=== PATIENT | male | born 1975 | race Caucasian/White ===

== ENCOUNTER 2017-05-15 19:11 | Inpatient (IN) ==
--- NOTE | 2017-05-15 20:12 | Emergency Department Note ---
Disposition Clinical Impression: Chest pain Disposition: Admitted As Inpatient Referrals: NO,PCP [Non-Partnered Physician] - Forms: ED Satisfaction Letter Time of Disposition: 22:32 General Adult HPI - General Chief complaint: ED Chest Pain Stated complaint: chest pain,swollen legs, had ekg at [facility] Time Seen by Provider: 05/15/17 19:52 Source: patient Mode of arrival: private vehicle Limitations: no limitations Nursing Notes Reviewed: Yes Vital Signs Reviewed: Yes - History of Present Illness HPI Narrative: 42-year-old male presents from urgent care where he was seen today for 1 month of progressive shortness of breath, lower extremity edema, and orthopnea. He has gradually worsening cough that is nonproductive as well. He received 324 mg of aspirin at urgent care. He does admit to mild chest tightness with shortness of breath. He denies any associated headache, confusion, fever, abdominal pain, nausea vomiting, diarrhea or constipation. He denies any change in urination. He takes no medicine at home, but states that he was formerly diagnosed with hypertension which is not treated due to him not having a doctor for the past few years. He denies tobacco or alcohol use, or recreational drug use. He denies any history of heart disease or congestive heart failure. Pain Scale: 3 - Related Data Home Medications Medication Instructions Recorded Confirmed No Known Home Drugs 05/15/17 05/15/17 Allergies Allergy/AdvReac Type Severity Reaction Status Date / Time No Known Allergies Allergy Verified 05/15/17 19:16 All systems ED: reviewed and negative except as stated. Past Medical History - Past Medical History Attestation: Yes The following information was validated with the patient. Source: patient Medical history: Reports: kidney stones Psychiatric history: Reports: no psych history - Social History Smoking Status: Never smoker Smokeless Tobacco Status: No Alcohol use: Reports: none Drug use: Reports: none Physical Exam - Head Head exam: atraumatic, normocephalic, normal inspection - Eye Eye exam: Present: normal appearance, PERRL, EOMI - ENT ENT exam: normal exam, normal oropharynx, mucous membranes moist - Neck Neck exam: Present: normal inspection, full ROM, trachea midline - Chest Chest inspection: Present: normal inspection, symmetric chest wall rise - Respiratory No left-sided distress with crackles at the bilateral bases. No wheezes. Cardiovascular Cardiovascular exam: Present: regular rate, normal rhythm, normal heart sounds - Abdominal Exam Abdominal exam: Present: soft, Non-Tender. Absent: tenderness, distention, guarding, rebound, rigidity - Extremities Exam Bilateral pitting edema to the knees. - Back Exam Back exam: Present: normal inspection, full ROM. Absent: tenderness, CVA tenderness (R), CVA tenderness (L) - Neurological Exam Neurological exam: Present: alert, oriented X3, CN II-XII intact - Psychiatric Psychiatric exam: Present: normal affect, normal mood - Skin Skin exam: Present: warm, dry, intact, normal color - General Limitations: no limitations General appearance: alert Course - Reevaluation(s) Reevaluation #1: Initially I suspected the patient would have findings concerning for congestive heart failure, but chest x-ray and BNP were normal. I proceeded to get a d- dimer to evaluate for pulmonary embolus as a cause of his shortness of breath which was also normal. At this point I ambulated the patient in the emergency department to see if he would develop hypoxia or shortness of breath with ambulation. Unfortunately while I was ambulating him he developed chest heaviness along with shortness of breath. This resolved with rest. Given the patient's chest pain with mild exertion, morbid obesity, history of poorly controlled hypertension and hypercholesterolemia we will admit him for chest pain. Initial troponin is negative. Hospitalist is kvng. Time: 22:29 Vital Signs Temperature 97.9 F 05/15/17 19:14 Pulse Rate 98 05/15/17 19:14 Respiratory Rate 20 05/15/17 19:14 Blood Pressure 186/118 05/15/17 19:14 O2 Sat by Pulse Oximetry 95 05/15/17 19:14 Temperature 97.9 F 05/15/17 19:14 Pulse Rate 103 05/15/17 20:56 Respiratory Rate 18 05/15/17 20:56 Blood Pressure 151/104 05/15/17 20:56 O2 Sat by Pulse Oximetry 95 05/15/17 20:56 Oxygen Delivery Oxygen Delivery Room Air Medical Decision Making - MDM Narrative Medical decision making narrative: I examined this patient and my medical decision-making was reviewed with the DYE STAND LOADER/PA/Advanced Practice Nurse/Resident Physician. I agree with the documented findings, disposition and treatment plan as described except to the extent set forth below. Patient seen and evaluated by Dr. Olvera myself, I agree with his evaluation and management plan, supervised the care of the patient's stay. Patient's been having orthopnea dyspnea and edema looks maybe a month. No history of CHF. Conidial workup for him. And most likely if this is positive he will need admission. Patient's agreement with this plan. Patient denies any chest pain at this time. Chest X-Ray 05/15/17 20:09 IMPRESSION: No acute process. D/ / Germán Luis MD / Germán Luis MD Interpreting Provider: Germán Luis MD 2140 hrs.: Despite his symptoms his BNP and chest x-ray do not show consistency with CHF. He is low to moderate risk for a PE. So we are going to add on a d- dimer and determine if that is elevated or not. He has no chest pain at this time. 2207 hrs.: Patient's d-dimer is normal. We are going to ambulate him and see how he does see if he becomes dyspneic or hypoxic. Or has chest discomfort. And then discuss this disposition. 2255 hrs.: Patient was ambulatory and hat was having some dyspnea and chest pains were to go and bring him into the hospital. For chest pain rule out. He is in agreement with this plan. - Lab Data Result diagrams: 05/15/17 21:00 05/15/17 21:00 Lab Results 05/15/17 05/15/17 05/15/17 Range/Units 21:00 21:00 21:00 WBC 15.7 H (4.3-11.1) K/mcL RBC 5.42 (4.19-5.50) M/mcL Hgb 15.3 (12.9-16.9) g/dL Hct 46.2 (37.5-50.1) % MCV 85.2 (83.0-100.0) fL MCH 28.2 (28.0-33.3) pg MCHC 33.1 (31.6-35.5) g/dL RDW 14.0 (11.5-14.5) % Plt Count 352 (140-400) K/mcL MPV 9.3 L (9.4-12.4) fL Immature Gran % 1.1 (0-4) % Seg Neutrophils % 72.1 % Lymphocytes % 17.1 % Monocytes % 5.7 % Eosinophils % 3.2 % Basophils % 0.8 % Neutrophils # 11.3 H (1.6-8.9) K/mcL Lymphocytes # 2.7 (0.6-4.6) K/mcL Monocytes # 0.9 (0.0-1.3) K/mcL Eosinophils # 0.5 (0.0-0.6) K/mcL Basophils # 0.1 (0.0-0.2) K/mcL D-Dimer (0-500) ng/mLFEU Sodium 137 (136-145) mEq/L Potassium 3.9 (3.5-4.5) mEq/L Chloride 103 (98-109) mEq/L Carbon Dioxide 22 (19-29) mEq/L BUN 12 (8-26) mg/dL Creatinine 0.83 (0.72-1.25) mg/dL Est GFR ( Amer) > 60 (> 60) Est GFR (Non-Af Amer) > 60 (> 60) BUN/Creatinine Ratio 14 (6-26) Glucose 106 H (70-99) mg/dL Calculated Osmolality 284 (280-300) Calcium 9.7 (8.6-10.8) mg/dL Troponin I 0.02 (0-0.03) ng/mL B-Natriuretic Peptide (0-100) pg/mL 05/15/17 05/15/17 Range/Units 21:00 21:00 WBC (4.3-11.1) K/mcL RBC (4.19-5.50) M/mcL Hgb (12.9-16.9) g/dL Hct (37.5-50.1) % MCV (83.0-100.0) fL MCH (28.0-33.3) pg MCHC (31.6-35.5) g/dL RDW (11.5-14.5) % Plt Count (140-400) K/mcL MPV (9.4-12.4) fL Immature Gran % (0-4) % Seg Neutrophils % % Lymphocytes % % Monocytes % % Eosinophils % % Basophils % % Neutrophils # (1.6-8.9) K/mcL Lymphocytes # (0.6-4.6) K/mcL Monocytes # (0.0-1.3) K/mcL Eosinophils # (0.0-0.6) K/mcL Basophils # (0.0-0.2) K/mcL D-Dimer 345 (0-500) ng/mLFEU Sodium (136-145) mEq/L Potassium (3.5-4.5) mEq/L Chloride (98-109) mEq/L Carbon Dioxide (19-29) mEq/L BUN (8-26) mg/dL Creatinine (0.72-1.25) mg/dL Est GFR ( Amer) (> 60) Est GFR (Non-Af Amer) (> 60) BUN/Creatinine Ratio (6-26) Glucose (70-99) mg/dL Calculated Osmolality (280-300) Calcium (8.6-10.8) mg/dL Troponin I (0-0.03) ng/mL B-Natriuretic Peptide < 10 (0-100) pg/mL - EKG Data EKG #1 EKG attestation: Yes I reviewed and interpreted this EKG. EKG results narrative: EKG shows sinus tachycardia at 105 with left axis deviation and normal intervals. No ST elevation or depression. No T-wave inversions. No pathologic Q waves. No ischemic change when compared with 06/09/2015. Repeat EKG again shows no ST elevation or depression. There are T-wave inversions in V1 and possible inferior Q waves which are both new when compared with prior EKG.
[2017-05-15 21:08] LABS: Basophils # 0.1 K/mcL (0.0-0.2); Basophils % 0.8 %; Eosinophils # 0.5 K/mcL (0.0-0.6); Eosinophils % 3.2 %; Hematocrit 46.2 % (37.5-50.1); Hemoglobin 15.3 g/dL (12.9-16.9); Immature Granulocytes % 1.1 % (0-4); Lymphocytes # 2.7 K/mcL (0.6-4.6); Lymphocytes % 17.1 %; Mean Corpuscular HGB Conc 33.1 g/dL (31.6-35.5); Mean Corpuscular Hemoglobin 28.2 pg (28.0-33.3); Mean Corpuscular Volume 85.2 fL (83.0-100.0); Mean Platelet Volume 9.3 fL (9.4-12.4); Monocytes # 0.9 K/mcL (0.0-1.3); Monocytes % 5.7 %; Neutrophils # 11.3 K/mcL (1.6-8.9); Platelet Count 352 K/mcL (140-400); Red Blood Count 5.42 M/mcL (4.19-5.50); Segmented Neutrophils % 72.1 %
[2017-05-15 21:22] LABS: BUN/Creatinine Ratio 14 (6-26); Blood Urea Nitrogen 12 mg/dL (8-26); Calcium 9.7 mg/dL (8.6-10.8); Carbon Dioxide 22 mEq/L (19-29); Chloride 103 mEq/L (98-109); Glucose 106 mg/dL (70-99); Osmolality,Calculated 284 (280-300); Potassium 3.9 mEq/L (3.5-4.5); Sodium 137 mEq/L (136-145); eGFR For African Americans > 60 (> 60); eGFR For Non-African Americans > 60 (> 60)
[2017-05-15] MEDS ORDERED: Furosemide 40 MG/4 ML VIAL IVP ONE (23:11)
--- NOTE | 2017-05-15 23:46 | Internal Med History&Physical ---
Date of Encounter: 05/16/17 Time of Encounter: 23:15 Assessment and Plan (1) Edema of both legs Current visit: Yes Status: Acute Bilateral lower extremity pitting edema 4+ Possibly due to new onset CHF unspecified Echocardiogram pending BN peptide is normal, troponin is normal, d-dimer is normal Chest x-ray negative for acute process Continue IV Lasix, Coreg and losartan, repeat labs in a.m. (2) Chest pain Current visit: Yes Status: Acute Mild chest discomfort and tightness-unclear etiology EKG shows sinus tachycardia, troponin is negative but we will trend troponin Continue aspirin and statin Echocardiogram pending Cardiology consult Qualifiers: Chest pain type: unspecified Qualified Code(s): R07.9 - Chest pain, unspecified (3) Leukocytosis Current visit: Yes Status: Acute Unclear etiology, cultures pending Qualifiers: Leukocytosis type: unspecified Qualified Code(s): D72.829 - Elevated white blood cell count, unspecified (4) Morbid obesity with BMI of 60.0-69.9, adult Current visit: Yes Status: Chronic Advised weight loss (5) DVT prophylaxis Current visit: Yes Status: Acute Continue heparin subcutaneous Internal Medicine - H&P: HPI Admitted From: Emergency Dept History of present illness: Mr. Byrne is a 42 year old male with no significant past medical history. He presents to the [facility] with complaints of shortness of breath and bilateral lower leg edema. Patient states symptoms started about a few weeks ago, and symptoms gradually worsened. Patient also complains of orthopnea. He also has a worsening cough which is nonproductive. Patient does complain of some chest heaviness and tightness which is worse with exertion. He rates it about 3 out of 10. This is relieved with rest. He denies palpitations denies abdominal pain and denies nausea or vomiting no confusion or fever or diarrhea. Patient does not take any medications at home. He does not have a history of congestive heart failure or heart disease. Initially the workup revealed elevated white count. His d-dimer and BNP peptide and troponin are all normal. Chest x-ray does not show any acute process. Bilateral lower leg edema and shortness of breath could be due to new onset congestive heart failure. We will treat the patient with IV Lasix. We will also continue beta gin and losartan and patient will also be on aspirin and statin. Patient on examination is awake and alert. Not in any acute distress. He is able to provide all history. is also at the bedside and she is also able to provide history. states patient does get tired and short of breath sometimes even with minimal exertion. He also has recurrent renal calculi. Patient and his have been explained about his condition and plan of care. They understood and agreed. EKG shows sinus tachycardia. No acute ST-T changes. Past Med Surg Social Fam HX - Past Medical History Medical history: kidney stones Psychiatric history: no psych history - Past Surgical History Surgical History: cholecystectomy - Social History Smoking Status: Never smoker Smokeless Tobacco Status: No Alcohol use: none Drug use: none - Family History Father Living Status: Hx Family Cancer: Yes (colon) Internal Medicine - H&P: Meds No Known Home Drugs 05/15/17 [History] Allergies No Known Allergies Allergy (Verified 05/15/17 19:16) All Systems PM: A 10-system review of systems was performed and is negative for pertinent findings except as documented above in the HPI. - Constitutional Constitutional: as per HPI, fatigue, weakness - Cardiovascular Cardiovascular ROS IM: chest pain, dyspnea, dyspnea on exertion, orthopnea, no syncope - Respiratory Respiratory: cough, dyspnea, dyspnea on exertion, no wheezing, no chest congestion - Gastrointestinal Gastrointestinal: no abdominal pain, no constipation, no cramping, no diarrhea - Neurological Neurological ROS: no abnormal gait, no abnormal speech, no dizziness, no focal weakness, no loss of vision - Constitutional Vitals: Temp Pulse Resp BP Pulse Ox 97.9 F 103 18 151/104 95 05/15/17 19:14 05/15/17 20:56 05/15/17 20:56 05/15/17 20:56 05/15/17 20:56 General appearance: Present: A&O X 3, morbidly obese, no acute distress, answers questions appropriately Exam: Generalized weakness - Head Head exam: Present: atraumatic - Neck Neck exam general surgery: Present: supple - Respiratory Respiratory exam: Present: CTAB. Absent: rhonchi, wheezes - Cardiovascular Cardiovascular exam: Present: +S1, +S2, tachycardia - GI/Abdominal GI/Abdominal exam: Present: distended (Obese), firm (Possible ascites), soft. Absent: guarding, tenderness - Extremities Exam Extremities exam: Present: pedal edema (Pitting edema bilateral lower legs 4+), radial pulses palpable and symetrical. Absent: cyanotic - Neurological Exam Neurological exam: Present: alert, oriented X3, no focal deficits Internal Med - H&P Results - Labs CBC & Chem 7: 05/15/17 21:00 05/15/17 21:00
[2017-05-16] MEDS ORDERED: Naloxone 0.4 MG/ML INJ IVP PRN (01:16)
[2017-05-16] MEDS ORDERED: Ondansetron 4 MG/2 ML VIAL IVP PRN (01:16)
[2017-05-16 05:04] LABS: Hematocrit 42.3 % (37.5-50.1); Hemoglobin 14.2 g/dL (12.9-16.9); Mean Corpuscular HGB Conc 33.6 g/dL (31.6-35.5); Mean Corpuscular Hemoglobin 28.8 pg (28.0-33.3); Mean Corpuscular Volume 85.8 fL (83.0-100.0); Mean Platelet Volume 9.7 fL (9.4-12.4); Platelet Count 312 K/mcL (140-400); Red Blood Count 4.93 M/mcL (4.19-5.50); Red Cell Distribution Width 14.3 % (11.5-14.5)
[2017-05-16 05:11] LABS: Hemoglobin A1C 6.7 %
[2017-05-16 05:20] LABS: Alanine Aminotransferase 24 Units/L (0-55); Albumin 3.5 g/dL (3.5-5.0); Albumin/Globulin Ratio 0.9 (1.1-2.2); Alkaline Phosphatase 96 Units/L (38-126); Aspartate Amino Transferase 24 Units/L (5-34); BUN/Creatinine Ratio 15 (6-26); Bilirubin,Total 0.8 mg/dL (0.2-1.2); Blood Urea Nitrogen 14 mg/dL (8-26); Calcium 9.4 mg/dL (8.6-10.8); Carbon Dioxide 21 mEq/L (19-29); Chloride 103 mEq/L (98-109); Chol/HDL Ratio 6.2 (0-4.9); Cholesterol 180 mg/dL (< 200); Globulin 4.1 g/dL (2.4-3.5); Glucose 145 mg/dL (70-99); HDL Cholesterol 29 mg/dL (40-59); LDL Cholesterol,Calculated 115 mg/dL (0-99); Magnesium 1.6 mg/dL (1.6-2.6); Osmolality,Calculated 285 (280-300); Potassium 3.9 mEq/L (3.5-4.5); Sodium 136 mEq/L (136-145); Total Protein 7.6 g/dL (6.0-8.3); Triglycerides 178 mg/dL (< 150); eGFR For African Americans > 60 (> 60); eGFR For Non-African Americans > 60 (> 60)
[2017-05-16 05:44] LABS: Thyroid Stimulating Hormone 2.031 mcIU/mL (0.350-4.840)
[2017-05-16] MEDS: Aspirin Enteric Coated 81 MG Tablet PO SCH (08:00)
[2017-05-16] MEDS: Furosemide 40 MG/4 ML VIAL IVP SCH ×2 (08:00→21:01)
[2017-05-16] MEDS: *HR* Heparin 5,000 UNIT/ML VIAL SQ SCH ×3 (08:00→23:52)
[2017-05-16] MEDS: Famotidine 20 MG TABLET PO SCH ×2 (08:01→21:00)
[2017-05-16] MEDS ORDERED: Perflutren Lipid Microsphere 1.3 ML in 0.9 % Sodium Chloride 8.7 ML IVP ONE (10:18)
--- NOTE | 2017-05-16 12:03 | Electrocardiograph Report ---
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
[2017-05-16] MEDS ORDERED: *HR* Dextrose 50 % in Water (Syg) 50 ML SYRINGE IVP PRN (15:31)
[2017-05-16] MEDS ORDERED: D5% in Water 1,000 ML IVC PRN (15:31)
[2017-05-16] MEDS ORDERED: Dextrose Gel 15 GM PO PRN ×2 (15:31)
--- NOTE | 2017-05-16 15:42 | Internal Med Progress Note ---
Date of Encounter: 05/16/17 Time of Encounter: 15:40 - Assessment and plan (1) Edema of both legs Current Visit: Yes Status: Acute Assessment and plan: 2D echo reported LVEF of 65-70% with mild LV diastolic dysfunction, mild LVH will continue IV diuresis O2 supplementation monitor I/Os, daily weights, fluid restriction diet will continue low dose BB will consider cardiology consult if no clinical improvement reported. (2) Diabetes mellitus Current Visit: Yes Status: Acute Assessment and plan: new onset DM HbA1C: 6.7 weight loss highly advised will start insulin sliding scale algorithm monitor fingerstick and blood glucose will provide with diabetic education likely will be discharged with PO antihyperglycemic Qualifiers: Diabetes mellitus type: type 2 Diabetes mellitus complication status: with unspecified complications Diabetes mellitus jail insulin use: without medical terminologist use Qualified Code(s): E11.8 - Type 2 diabetes mellitus with unspecified complications (3) Chest pain Current Visit: Yes Status: Resolved Assessment and plan: Resolved at this time serial TNI negative no EKG changes reported will continue ASA and statin hold antihypertensive meds at this time Qualifiers: Chest pain type: unspecified Qualified Code(s): R07.9 - Chest pain, unspecified (4) DVT prophylaxis Current Visit: Yes Status: Acute Assessment and plan: Heparin SQ (5) Morbid obesity with BMI of 60.0-69.9, adult Current Visit: Yes Status: Chronic (6) Leukocytosis Current Visit: Yes Status: Acute Assessment and plan: of unclear etiology no signs of infectious etiology present will monitor off abx at this time Qualifiers: Leukocytosis type: unspecified Qualified Code(s): D72.829 - Elevated white blood cell count, unspecified (7) Hyperlipemia Current Visit: Yes Status: Acute Assessment and plan: started statin Qualifiers: Hyperlipidemia type: unspecified Qualified Code(s): E78.5 - Hyperlipidemia , unspecified - Subjective Interval history: Patient seen and examined at bedside. Resting in bed and reports of mild shortness of breath but denies any chest pain or discomfort. Serial TNI negative and EKG changes negative for any ST segment abnormalities. - Constitutional Vitals: Temp Pulse Resp BP Pulse Ox 97.8 F 95 20 97/66 94 05/16/17 14:57 05/16/17 14:57 05/16/17 14:57 05/16/17 14:57 05/16/17 14:57 General appearance: Present: A&O X 3, morbidly obese, no acute distress, answers questions appropriately - Head Head exam: Present: atraumatic, normocephalic - Eye Eye exam: Present: conjuntiva pink, sclera anicteric - Respiratory Respiratory exam: Absent: respiratory distress, wheezes (bibasilar crackles ) - Cardiovascular Cardiovascular exam: Present: RRR, +S1, +S2 - GI/Abdominal GI/Abdominal exam: Present: distended (morbidly obese), normal bowel sounds, soft. Absent: tenderness - Extremities Exam Extremities exam: Present: warm, radial pulses palpable and symetrical. Absent : calf tenderness (bilateral lower extremity pitting edema) - Neurological Exam Neurological exam: Present: alert, oriented X3 - Psychiatric Psychiatric exam: Present: normal affect, normal mood Internal Medicine: Result - Labs CBC & Chem 7: 05/16/17 04:41 05/16/17 04:41 Labs: Short CBC 05/16/17 Range/Units 04:41 WBC 17.1 H (4.3-11.1) K/mcL Hgb 14.2 (12.9-16.9) g/dL Hct 42.3 (37.5-50.1) % Plt Count 312 (140-400) K/mcL BMP 05/16/17 04:41 Sodium 136 Potassium 3.9 Chloride 103 Carbon Dioxide 21 BUN 14 Creatinine 0.96 Glucose 145 H Calcium 9.4 Cardiac Enzymes 05/16/17 05/16/17 Range/Units 04:41 11:37 Troponin I 0.00 0.00 (0-0.03) ng/mL Liver Function 05/16/17 Range/Units 04:41 Total Bilirubin 0.8 (0.2-1.2) mg/dL AST 24 (5-34) Units/L ALT 24 (0-55) Units/L Alkaline Phosphatase 96 (38-126) Units/L Albumin 3.5 (3.5-5.0) g/dL - ABG Interpretation ABG results: PT/INR, D-dimer D-Dimer 345 ng/mLFEU (0-500) 05/15/17 21:00 Consult Discharge Plan - Plan Referrals: Andres Palm MD [Primary Care Provider] -
[2017-05-16] MEDS: Insulin LISPRO 300 UNITS/3 ML VIAL SQ SCH ×2 (17:37→20:55)
--- NOTE | 2017-05-16 17:46 | Electrocardiograph Report ---
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
[2017-05-17 06:13] LABS: Basophils # 0.1 K/mcL (0.0-0.2); Basophils % 0.7 %; Eosinophils # 0.4 K/mcL (0.0-0.6); Hematocrit 42.1 % (37.5-50.1); Hemoglobin 14.1 g/dL (12.9-16.9); Immature Granulocytes % 1.5 % (0-4); Lymphocytes # 2.6 K/mcL (0.6-4.6); Lymphocytes % 17.7 %; Mean Corpuscular HGB Conc 33.5 g/dL (31.6-35.5); Mean Corpuscular Hemoglobin 28.9 pg (28.0-33.3); Mean Corpuscular Volume 86.3 fL (83.0-100.0); Mean Platelet Volume 9.6 fL (9.4-12.4); Monocytes % 6.7 %; Neutrophils # 10.2 K/mcL (1.6-8.9); Platelet Count 288 K/mcL (140-400); Red Blood Count 4.88 M/mcL (4.19-5.50); Red Cell Distribution Width 14.6 % (11.5-14.5); Segmented Neutrophils % 70.4 %
[2017-05-17 06:27] LABS: BUN/Creatinine Ratio 22 (6-26); Blood Urea Nitrogen 21 mg/dL (8-26); Calcium 9.3 mg/dL (8.6-10.8); Carbon Dioxide 23 mEq/L (19-29); Chloride 103 mEq/L (98-109); Glucose 138 mg/dL (70-99); Osmolality,Calculated 289 (280-300); Phosphorous 4.1 mg/dL (2.3-4.7); Sodium 137 mEq/L (136-145); eGFR For African Americans > 60 (> 60); eGFR For Non-African Americans > 60 (> 60)
[2017-05-17 06:28] LABS: Magnesium 2.2 mg/dL (1.6-2.6)
[2017-05-17 06:32] LABS: Potassium 4.2 mEq/L (3.5-4.5)
[2017-05-17 08:10] LABS: Bilirubin,Urine Negative (Negative); Blood,Urine Negative (Negative); Clarity,Urine Clear (Clear); Color,Urine Yellow (Yellow); Glucose,Urine (UA) Normal (Normal); Ketones,Urine Negative (Negative); Leukocyte Esterase,Urine Negative (Negative); Nitrite,Urine Negative (Negative); PH,Urine 5.5 pH Units (5.0-8.0); Protein,Urine Negative (Neg-Trace); Specific Gravity,Urine 1.018 (1.010-1.025); Urobilinogen,Urine Normal (Normal)
[2017-05-17] MEDS: Acetaminophen 325 MG TABLET PO PRN ×2 (08:26→23:57)
[2017-05-17] MEDS: Aspirin Enteric Coated 81 MG Tablet PO SCH (08:26)
[2017-05-17] MEDS: Famotidine 20 MG TABLET PO SCH ×2 (08:26→21:07)
[2017-05-17] MEDS: Furosemide 40 MG/4 ML VIAL IVP SCH ×3 (08:26→21:08)
[2017-05-17] MEDS: *HR* Heparin 5,000 UNIT/ML VIAL SQ SCH ×3 (08:26→23:53)
[2017-05-17] MEDS: Insulin LISPRO 300 UNITS/3 ML VIAL SQ SCH ×4 (08:28→21:03)
--- NOTE | 2017-05-17 13:54 | Internal Med Progress Note ---
Date of Encounter: 05/17/17 Time of Encounter: 13:05 - Assessment and plan (1) Edema of both legs Current Visit: Yes Status: Acute Assessment and plan: 2D echo reported LVEF of 65-70% with mild LV diastolic dysfunction, mild LVH will continue IV diuresis O2 supplementation monitor I/Os, daily weights, fluid restriction diet will continue low dose BB Cardiology follow up as outpatient likely d/c in am if remains stable overnight (2) Diabetes mellitus Current Visit: Yes Status: Acute Assessment and plan: new onset DM HbA1C: 6.7 weight loss highly advised continue insulin sliding scale algorithm monitor fingerstick and blood glucose Diabetic education provided likely will be discharged with PO antihyperglycemic Qualifiers: Diabetes mellitus type: type 2 Diabetes mellitus complication status: with unspecified complications Diabetes mellitus fci insulin use: without fci use Qualified Code(s): E11.8 - Type 2 diabetes mellitus with unspecified complications (3) Chest pain Current Visit: Yes Status: Resolved Assessment and plan: Resolved at this time serial TNI negative no EKG changes reported will continue ASA and statin continue to hold antihypertensive meds at this time Qualifiers: Chest pain type: unspecified Qualified Code(s): R07.9 - Chest pain, unspecified (4) DVT prophylaxis Current Visit: Yes Status: Acute Assessment and plan: Heparin SQ (5) Morbid obesity with BMI of 60.0-69.9, adult Current Visit: Yes Status: Chronic (6) Leukocytosis Current Visit: Yes Status: Acute Assessment and plan: of unclear etiology no signs of infectious etiology present will monitor off abx at this time Qualifiers: Leukocytosis type: unspecified Qualified Code(s): D72.829 - Elevated white blood cell count, unspecified (7) Hyperlipemia Current Visit: Yes Status: Acute Assessment and plan: continue statin Qualifiers: Hyperlipidemia type: unspecified Qualified Code(s): E78.5 - Hyperlipidemia , unspecified - Subjective Interval history: Patient seen and examined at bedside. Sitting in bed and reports of feeling better compared to previous day. I had a detailed discussion in regards to patient's new diagnosis of DM, CHF. 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 He is educated on weight loss and adherance to a low vasiliy diet for weight loss. Patient demonstrated understanding of his diagnosis and is willing to make necessary life style changes after discharge. Patient has been voiding independently and has been encouraged to monitor I/Os, he reports of having good urine output. - Constitutional Vitals: Temp Pulse Resp BP Pulse Ox 97.7 F 87 15 109/73 97 05/17/17 11:33 05/17/17 11:33 05/17/17 11:33 05/17/17 11:33 05/17/17 11:33 General appearance: Present: A&O X 3, morbidly obese, no acute distress, answers questions appropriately - Head Head exam: Present: atraumatic, normocephalic - Eye Eye exam: Present: normal appearance, conjuntiva pink, sclera anicteric - Respiratory Respiratory exam: Absent: respiratory distress, wheezes (diffuse rales) - Cardiovascular Cardiovascular exam: Present: RRR, +S1, +S2. Absent: diastolic murmur, gallop, rubs, systolic murmur - GI/Abdominal GI/Abdominal exam: Present: distended (obese), normal bowel sounds, soft, no peritoneal signs. Absent: tenderness - Extremities Exam Extremities exam: Present: pedal edema (bilateral 1+pitting edema), warm, radial pulses palpable and symetrical. Absent: calf tenderness - Neurological Exam Neurological exam: Present: alert, oriented X3 - Psychiatric Psychiatric exam: Present: normal affect, normal mood Internal Medicine: Result - Labs CBC & Chem 7: 05/17/17 05:57 05/17/17 05:57 Labs: Short CBC 05/17/17 Range/Units 05:57 WBC 14.4 H (4.3-11.1) K/mcL Hgb 14.1 (12.9-16.9) g/dL Hct 42.1 (37.5-50.1) % Plt Count 288 (140-400) K/mcL Neutrophils # 10.2 H (1.6-8.9) K/mcL BMP 05/17/17 05:57 Sodium 137 Potassium 4.2 Chloride 103 Carbon Dioxide 23 BUN 21 Creatinine 0.97 Glucose 138 H Calcium 9.3 Cardiac Enzymes 05/16/17 Range/Units 17:07 Troponin I 0.00 (0-0.03) ng/mL Urine 05/17/17 Range/Units 07:00 Urine Color Yellow (Yellow) Urine Clarity Clear (Clear) Urine pH 5.5 (5.0-8.0) pH Units Ur Specific [place] 1.018 (1.010-1.025) Urine Protein Negative (Neg-Trace) mg/dL Urine Glucose (UA) Normal (Normal) mg/dL - ABG Interpretation ABG results: PT/INR, D-dimer D-Dimer 345 ng/mLFEU (0-500) 05/15/17 21:00 Consult Discharge Plan - Plan Referrals: [facility] [Provider Group] Andres Palm MD [Primary Care Provider] -
[2017-05-18 04:28] LABS: Basophils # 0.1 K/mcL (0.0-0.2); Basophils % 0.8 %; Eosinophils # 0.4 K/mcL (0.0-0.6); Eosinophils % 3.3 %; Hematocrit 42.4 % (37.5-50.1); Hemoglobin 14.1 g/dL (12.9-16.9); Immature Granulocytes % 1.4 % (0-4); Lymphocytes # 2.7 K/mcL (0.6-4.6); Lymphocytes % 20.9 %; Mean Corpuscular HGB Conc 33.3 g/dL (31.6-35.5); Mean Corpuscular Hemoglobin 28.8 pg (28.0-33.3); Mean Corpuscular Volume 86.5 fL (83.0-100.0); Mean Platelet Volume 10.1 fL (9.4-12.4); Monocytes % 7.5 %; Neutrophils # 8.6 K/mcL (1.6-8.9); Nucleated Red Blood Cells 0.2 /100 WBC (0); Platelet Count 295 K/mcL (140-400); Red Cell Distribution Width 14.5 % (11.5-14.5); Segmented Neutrophils % 66.1 %
[2017-05-18 04:38] LABS: BUN/Creatinine Ratio 22 (6-26); Blood Urea Nitrogen 23 mg/dL (8-26); Calcium 9.1 mg/dL (8.6-10.8); Carbon Dioxide 24 mEq/L (19-29); Chloride 100 mEq/L (98-109); Glucose 130 mg/dL (70-99); Magnesium 1.9 mg/dL (1.6-2.6); Osmolality,Calculated 289 (280-300); Sodium 137 mEq/L (136-145); eGFR For African Americans > 60 (> 60); eGFR For Non-African Americans > 60 (> 60)
[2017-05-18 04:41] LABS: Potassium 3.6 mEq/L (3.5-4.5)
[2017-05-18] MEDS: Famotidine 20 MG TABLET PO SCH ×2 (08:16→20:40)
[2017-05-18] MEDS: Aspirin Enteric Coated 81 MG Tablet PO SCH (08:16)
[2017-05-18] MEDS: Furosemide 40 MG/4 ML VIAL IVP SCH ×2 (08:17→20:40)
[2017-05-18] MEDS: *HR* Heparin 5,000 UNIT/ML VIAL SQ SCH ×2 (08:17→16:55)
[2017-05-18] MEDS: Insulin LISPRO 300 UNITS/3 ML VIAL SQ SCH ×4 (08:17→20:34)
[2017-05-18] MEDS ORDERED: Furosemide 20 MG/2 ML VIAL IVP ONE (13:03)
--- NOTE | 2017-05-18 13:03 | Internal Med Progress Note ---
Date of Encounter: 05/18/17 Time of Encounter: 12:25 - Assessment and plan (1) UTI (urinary tract infection) Current Visit: Yes Status: Acute Assessment and plan: Leukocytosis likely secondary to UTI will treat for symptomatic UTI start Ceftriaxone 1gm IV qd f/u urine culture Qualifiers: Urinary tract infection type: site unspecified Hematuria presence: with hematuria Qualified Code(s): N39.0 - Urinary tract infection, site not specified; R31.9 - Hematuria, unspecified (2) Edema of both legs Current Visit: Yes Status: Acute Assessment and plan: 2D echo reported LVEF of 65-70% with mild LV diastolic dysfunction, mild LVH will continue IV diuresis, will give additional Lasix 20mg IV today due to persistent orthopnea O2 supplementation monitor I/Os, daily weights, fluid restriction diet will continue low dose BB Cardiology follow up as outpatient (3) Diabetes mellitus Current Visit: Yes Status: Acute Assessment and plan: new onset DM HbA1C: 6.7 weight loss highly advised continue insulin sliding scale algorithm monitor fingerstick and blood glucose Diabetic education provided likely will be discharged with PO antihyperglycemic Qualifiers: Diabetes mellitus type: type 2 Diabetes mellitus complication status: with unspecified complications Diabetes mellitus care home insulin use: without care home use Qualified Code(s): E11.8 - Type 2 diabetes mellitus with unspecified complications (4) Chest pain Current Visit: Yes Status: Resolved Assessment and plan: Resolved at this time serial TNI negative no EKG changes reported will continue ASA and statin continue to hold antihypertensive meds at this time Qualifiers: Chest pain type: unspecified Qualified Code(s): R07.9 - Chest pain, unspecified (5) DVT prophylaxis Current Visit: Yes Status: Acute Assessment and plan: Heparin SQ (6) Morbid obesity with BMI of 60.0-69.9, adult Current Visit: Yes Status: Chronic (7) Hyperlipemia Current Visit: Yes Status: Acute Qualifiers: Hyperlipidemia type: unspecified Qualified Code(s): E78.5 - Hyperlipidemia , unspecified - Subjective Interval history: Patient seen and examined at bedside. Reports of dysuria and left flank pain that started since yesterday evening. Denies any fevers or chills. Reports of improvement in his respiratory status however continues to have orthopnea ( improved since admission). - Constitutional Vitals: Temp Pulse Resp BP Pulse Ox 97.7 F 90 20 137/83 95 05/18/17 11:31 05/18/17 11:31 05/18/17 11:31 05/18/17 11:31 05/18/17 11:31 General appearance: Present: A&O X 3, morbidly obese, no acute distress, answers questions appropriately - Head Head exam: Present: atraumatic, normocephalic - Eye Eye exam: Present: normal appearance, conjuntiva pink, sclera anicteric - Respiratory Respiratory exam: Absent: respiratory distress, wheezes (bilateral rales, improved from previous day) - Cardiovascular Cardiovascular exam: Present: RRR, +S1, +S2. Absent: diastolic murmur, gallop, rubs, systolic murmur - GI/Abdominal GI/Abdominal exam: Present: distended (obese), normal bowel sounds, soft. Absent: tenderness - Extremities Exam Extremities exam: Present: pedal edema, warm, radial pulses palpable and symetrical. Absent: calf tenderness - Neurological Exam Neurological exam: Present: alert, oriented X3 - Psychiatric Psychiatric exam: Present: normal affect, normal mood Internal Medicine: Result - Labs CBC & Chem 7: 05/18/17 03:20 05/18/17 03:20 Labs: Short CBC 05/18/17 Range/Units 03:20 WBC 13.0 H (4.3-11.1) K/mcL Hgb 14.1 (12.9-16.9) g/dL Hct 42.4 (37.5-50.1) % Plt Count 295 (140-400) K/mcL Neutrophils # 8.6 (1.6-8.9) K/mcL BMP 05/18/17 03:20 Sodium 137 Potassium 3.6 Chloride 100 Carbon Dioxide 24 BUN 23 Creatinine 1.04 Glucose 130 H Calcium 9.1 - ABG Interpretation ABG results: PT/INR, D-dimer D-Dimer 345 ng/mLFEU (0-500) 05/15/17 21:00 Consult Discharge Plan - Plan Referrals: [facility] [Provider Group] - 06/25/17 10:45 am Andres Palm MD [Primary Care Provider] - 05/24/17 1:15 pm
[2017-05-18 14:43] LABS: Bilirubin,Urine Negative (Negative); Blood,Urine Negative (Negative); Clarity,Urine Clear (Clear); Color,Urine Yellow (Yellow); Glucose,Urine (UA) Normal (Normal); Ketones,Urine Negative (Negative); Leukocyte Esterase,Urine Negative (Negative); Nitrite,Urine Negative (Negative); Protein,Urine Negative (Neg-Trace); Specific Gravity,Urine 1.013 (1.010-1.025); Urobilinogen,Urine Normal (Normal)
[2017-05-18] MEDS: Acetaminophen 325 MG TABLET PO PRN (19:40)
[2017-05-18] MEDS ORDERED: *HR* Morphine 2 MG/ML SYRINGE IVP PRN (21:55)
[2017-05-19] MEDS: *HR* Heparin 5,000 UNIT/ML VIAL SQ SCH ×2 (00:40→08:34)
[2017-05-19] MEDS ORDERED: *HR* HYDROmorphone (PF) 1 MG/ML SYRINGE IVP ONE (03:07)
[2017-05-19 04:25] LABS: Basophils # 0.1 K/mcL (0.0-0.2); Eosinophils # 0.4 K/mcL (0.0-0.6); Eosinophils % 3.3 %; Hematocrit 41.4 % (37.5-50.1); Hemoglobin 13.7 g/dL (12.9-16.9); Immature Granulocytes % 1.1 % (0-4); Lymphocytes % 22.8 %; Mean Corpuscular HGB Conc 33.1 g/dL (31.6-35.5); Mean Corpuscular Hemoglobin 28.5 pg (28.0-33.3); Mean Corpuscular Volume 86.1 fL (83.0-100.0); Mean Platelet Volume 9.4 fL (9.4-12.4); Monocytes % 7.2 %; Neutrophils # 8.6 K/mcL (1.6-8.9); Platelet Count 294 K/mcL (140-400); Red Blood Count 4.81 M/mcL (4.19-5.50); Red Cell Distribution Width 14.3 % (11.5-14.5); Segmented Neutrophils % 64.6 %
[2017-05-19 04:38] LABS: BUN/Creatinine Ratio 21 (6-26); Blood Urea Nitrogen 21 mg/dL (8-26); Carbon Dioxide 24 mEq/L (19-29); Chloride 101 mEq/L (98-109); Glucose 128 mg/dL (70-99); Magnesium 1.8 mg/dL (1.6-2.6); Osmolality,Calculated 291 (280-300); Potassium 3.3 mEq/L (3.5-4.5); Sodium 138 mEq/L (136-145); eGFR For African Americans > 60 (> 60); eGFR For Non-African Americans > 60 (> 60)
[2017-05-19] MEDS: Insulin LISPRO 300 UNITS/3 ML VIAL SQ SCH ×2 (07:58→12:12)
[2017-05-19] MEDS: Furosemide 40 MG/4 ML VIAL IVP SCH (08:34)
[2017-05-19] MEDS: Famotidine 20 MG TABLET PO SCH (08:34)
[2017-05-19] MEDS: Aspirin Enteric Coated 81 MG Tablet PO SCH (08:34)
[2017-05-19 11:51] VITALS: BP 121/76
--- NOTE | 2017-05-19 13:09 | Discharge Summary ---
Date of Encounter: 05/19/17 Time of Encounter: 13:05 - Discharge Diagnosis (1) UTI (urinary tract infection) Priority: Secondary Status: Acute Qualifiers: Urinary tract infection type: site unspecified Hematuria presence: with hematuria Qualified Code(s): N39.0 - Urinary tract infection, site not specified; R31.9 - Hematuria, unspecified (2) Edema of both legs Priority: Primary Status: Acute (3) Diabetes mellitus Priority: Secondary Status: Acute Qualifiers: Diabetes mellitus type: type 2 Diabetes mellitus complication status: with unspecified complications Diabetes mellitus assisted insulin use: without assisted use Qualified Code(s): E11.8 - Type 2 diabetes mellitus with unspecified complications (4) Chest pain Priority: Secondary Status: Resolved Qualifiers: Chest pain type: unspecified Qualified Code(s): R07.9 - Chest pain, unspecified (5) DVT prophylaxis Priority: Secondary Status: Acute (6) Morbid obesity with BMI of 60.0-69.9, adult Priority: Secondary Status: Chronic (7) Hyperlipemia Priority: Secondary Status: Acute Qualifiers: Hyperlipidemia type: unspecified Qualified Code(s): E78.5 - Hyperlipidemia , unspecified - Discharge Medications Prescriptions: Aspirin Enteric Coated [Aspirin EC] 81 mg PO DAILY #30 tablet. Carvedilol [Coreg] 3.125 mg PO BIDWM #60 tablet Ciprofloxacin/Ciprofloxa HCl [Cipro Xr 1,000 mg Tablet] 1,000 mg PO DAILY #5 tbmp.24hr Furosemide [Lasix] 40 mg PO BID #60 tablet metFORMIN [Glucophage] 500 mg PO BIDWM #60 tablet Simvastatin [Zocor] 20 mg PO HS #30 tablet Home Medications: Aspirin Enteric Coated [Aspirin EC] 81 mg PO DAILY #30 tablet. 05/19/17 [Rx] Carvedilol [Coreg] 3.125 mg PO BIDWM #60 tablet 05/19/17 [Rx] Ciprofloxacin/Ciprofloxa HCl [Cipro Xr 1,000 mg Tablet] 1,000 mg PO DAILY #5 tbmp.24hr 05/19/17 [Rx] Furosemide [Lasix] 40 mg PO BID #60 tablet 05/19/17 [Rx] Simvastatin [Zocor] 20 mg PO HS #30 tablet 05/19/17 [Rx] metFORMIN [Glucophage] 500 mg PO BIDWM #60 tablet 05/19/17 [Rx] Allergies/Adverse Reactions: Allergies No Known Allergies Allergy (Verified 05/15/17 19:16) Date of admission: 05/16/17 01:16 Primary care physician: Andres Palm MD Consults: 05/16/17 01:20 Consult to Nurse Navigator [CONS] Routine Comment: 05/16/17 15:43 Consult to Coal Tower Operator [CONS] Stat Comment: Reason for Consult: new onset diabetes Discharging clinician: Michelle Romero Anticipated date of discharge: 05/19/17 - Patient Status Disposition: Home, Self-Care Condition: Good Functional capacity at discharge: independent ambulation Overall status at discharge: patient is back to baseline - Discharge Instructions Instructions: How to Check Your Blood Sugar (DC), Diabetes Mellitus Type 2 in Adults (DC), Diabetic Hypoglycemia (GEN), Meal Planning with Diabetes Exchanges (DC) Follow Up With: [facility] [Provider Group] - 06/25/17 10:45 am Andres Palm MD [Primary Care Provider] - 05/24/17 1:15 pm Additional Instructions: Please follow up with your primary care physician and blood bank technologist within one week after your discharge from the hospital. You are being discharged with Aspirin, Lasix, Metformin, Simvastatin, Carvedilol. Please take these medications as prescribed. Inform your primary care physician about your newly diagnosed Diabetes, Congestive Heart Failure, Hyperlipidemia. Please continue oral antibiotics (Ciprofloxacin) for UTI as prescribed. Please closely monitor your fingerstick at home. Take these readings with you to your primary care physician's appointment. Monitor fingerstick three times a day. Fasting, Premeal, and before bedtime. Please seek medical help if you experience chest pain or have worsening shortness of breath. - Diet and Activity Activity: resume usual activities as tolerated Diet: diabetic diet, low salt diet Hospital course: Mr. Byrne is a 42 year old male with PMH of renal stones and morbid obesity who was admitted for worsening shortness of breath and worsening bilateral lower extremity edema. Patient was found to have CHF, DM, HLD during this hospitalization. He was started on IV diuretics to which he responded appropriately. His hospital course was complicated with a symptomatic UTI for which he was started on IV abx. He underwent O2 qualification and did not qualify for home oxygen. at this time he is hemodynamically stable and will be discharged to home with follow up with PCP and cardiology. Patient was provided with Diabetic education, he demonstrates understanding and is comfortable with checking his home blood glucose. pt and family verbalizes understanding of his diagnosis and agrees with the discharge care and plan. - Time Spent with Patient Total time spent providing and/or coordinating discharge services: Greater than 30 minutes - Constitutional Vitals: Temp Pulse Resp BP Pulse Ox 97.7 F 89 14 121/76 96 05/19/17 11:46 05/19/17 11:46 05/19/17 11:46 05/19/17 11:46 05/19/17 11:46 General appearance: Present: A&O X 3, morbidly obese, no acute distress, answers questions appropriately - Head Head exam: Present: atraumatic, normocephalic - Eye Eye exam: Present: conjuntiva pink, sclera anicteric - Respiratory Respiratory exam: Absent: respiratory distress, wheezes - Cardiovascular Cardiovascular exam: Present: RRR, +S1, +S2 - GI/Abdominal GI/Abdominal exam: Present: normal bowel sounds, soft, no peritoneal signs. Absent: distended, tenderness - Extremities Exam Extremities exam: Present: pedal edema, warm, radial pulses palpable and symetrical. Absent: calf tenderness - Neurological Exam Neurological exam: Present: alert, oriented X3 - Psychiatric Psychiatric exam: Present: normal affect, normal mood
== END 2017-05-19 14:40 | disposition home or self-care (01) | DRG 292 ==
LOC: 3BNU 19:11 → EMEROO 19:11 → 3BNU 05-16 00:34
PROVIDERS: ADMIT Internal Medicine Sleep Medicine; ATTEND Registered Nurse

== ENCOUNTER 2020-05-18 06:46 | Inpatient (IN) ==
[2020-05-18] MEDS ORDERED: Aspirin 81 MG TAB.CHEW PO ONE (06:51)
[2020-05-18 07:14] LABS: INR 0.9; Prothrombin Time 10.4 Seconds (9.4-12.1)
[2020-05-18 07:17] LABS: Activated Partial Thrombo Time 35.9 Seconds (26.0-36.0)
[2020-05-18 07:19] LABS: Basophils # 0.2 K/mcL (0.0-0.2); Basophils % 1.1 %; Eosinophils # 0.5 K/mcL (0.0-0.6); Eosinophils % 3.8 %; Hematocrit 48.1 % (37.5-50.1); Hemoglobin 15.4 g/dL (12.9-16.9); Immature Granulocytes % 0.9 % (0-4); Lymphocytes # 3.1 K/mcL (0.6-4.6); Lymphocytes % 22.4 %; Mean Corpuscular Hemoglobin 28.6 pg (28.0-33.3); Mean Corpuscular Volume 89.2 fL (83.0-100.0); Mean Platelet Volume 9.7 fL (9.4-12.4); Neutrophils # 9.1 K/mcL (1.6-8.9); Platelet Count 338 K/mcL (140-400); Red Blood Count 5.39 M/mcL (4.19-5.50); Red Cell Distribution Width 14.5 % (11.5-14.5); Segmented Neutrophils % 64.8 %
[2020-05-18 07:22] LABS: Bilirubin,Urine Negative (Negative); Blood,Urine Negative (Negative); Clarity,Urine Clear (Clear); Color,Urine Light-Yellow (Yellow); Glucose,Urine (UA) Normal (Normal); Ketones,Urine Negative (Negative); Leukocyte Esterase,Urine Negative (Negative); Nitrite,Urine Negative (Negative); Protein,Urine Trace mg/dL (Neg-Trace); Specific Gravity,Urine 1.019 (1.010-1.025); Urobilinogen,Urine Normal (Normal)
[2020-05-18 07:29] LABS: Albumin 4.1 g/dL (3.5-5.7); Albumin/Globulin Ratio 1.1 (1.1-2.2); Bilirubin,Direct 0.1 mg/dL (0.0-0.2); Bilirubin,Indirect 0.4 mg/dL (0.0-1.0); Bilirubin,Total 0.5 mg/dL (0.3-1.0); Globulin 3.6 g/dL (2.4-3.5); Magnesium 1.6 mg/dL (1.6-2.6); Total Protein 7.7 g/dL (6.4-8.9)
[2020-05-18 07:31] LABS: BUN/Creatinine Ratio 21 (6-26); Blood Urea Nitrogen 19 mg/dL (6-20); Calcium 9.3 mg/dL (8.6-10.3); Carbon Dioxide 28 mEq/L (23-29); Chloride 97 mEq/L (98-107); Glucose 234 mg/dL (70-105); Osmolality,Calculated 290 (280-300); Potassium 3.6 mEq/L (3.5-5.1); Sodium 135 mEq/L (136-145); Troponin I < 0.03 ng/mL (< 0.04); eGFR For African Americans > 60 (> 60); eGFR For Non-African Americans > 60 (> 60)
[2020-05-18] MEDS: Nitroglycerin 0.4 MG TAB.SUBL SL SCH ×2 (07:55→11:52)
[2020-05-18 08:05] LABS: Amphetamine Screen,Urine Negative ng/mL (Cutoff=1000); Barbiturate Screen,Urine Negative ng/mL (Cutoff=200); Benzodiazepines Screen,Urine Negative ng/mL (Cutoff=200); Cannabinoid Screen,Urine Negative ng/mL (Cutoff = 50); Cocaine Screen,Urine Negative ng/mL (Cutoff= 300); Opiate Screen,Urine Negative ng/mL (Cutoff=300); Phencyclidine Screen,Urine Negative ng/mL (Cutoff=25)
[2020-05-18] MEDS ORDERED: Furosemide 40 MG/4 ML VIAL IVP ONE (08:38)
[2020-05-18] MEDS ORDERED: Naloxone 0.4 MG/ML INJ IVP PRN (08:39)
[2020-05-18] MEDS ORDERED: Ondansetron 4 MG/2 ML VIAL IVP PRN (08:39)
[2020-05-18] MEDS ORDERED: D5% in Water 1,000 ML IVC PRN (08:42)
[2020-05-18] MEDS ORDERED: *HR* Dextrose 50 % in Water (Vial) 50 ML VIAL IVP PRN (08:42)
[2020-05-18] MEDS ORDERED: Dextrose Gel 15 GM/37.5 ML TUBE PO PRN ×2 (08:42)
[2020-05-18] MEDS ORDERED: Nitroglycerin 0.4 MG TAB.SUBL SL PRN (09:29)
[2020-05-18 14:04] LABS: Estimated Average Glucose 180 mg/dl
[2020-05-18] MEDS: Insulin LISPRO 300 UNITS/3 ML VIAL SQ SCH ×3 (14:28→20:58)
[2020-05-18] MEDS: Furosemide 40 MG/4 ML VIAL IVP SCH (17:05)
[2020-05-18] MEDS ORDERED: Perflutren Lipid Microsphere 1.3 ML in 0.9 % Sodium Chloride 8.7 ML IVP ONE (18:05)
[2020-05-18] MEDS ORDERED: tiZANidine 4 MG TABLET PO PRN (18:31)
[2020-05-19 05:15] LABS: Basophils # 0.1 K/mcL (0.0-0.2); Eosinophils # 0.4 K/mcL (0.0-0.6); Eosinophils % 2.8 %; Hematocrit 45.3 % (37.5-50.1); Hemoglobin 14.7 g/dL (12.9-16.9); Immature Granulocytes % 0.7 % (0-4); Lymphocytes # 2.2 K/mcL (0.6-4.6); Lymphocytes % 16.3 %; Mean Corpuscular HGB Conc 32.5 g/dL (31.6-35.5); Mean Corpuscular Hemoglobin 28.9 pg (28.0-33.3); Mean Platelet Volume 9.8 fL (9.4-12.4); Monocytes # 0.9 K/mcL (0.0-1.3); Monocytes % 6.7 %; Neutrophils # 9.7 K/mcL (1.6-8.9); Platelet Count 286 K/mcL (140-400); Red Blood Count 5.09 M/mcL (4.19-5.50); Red Cell Distribution Width 14.4 % (11.5-14.5); Segmented Neutrophils % 72.5 %; White Blood Count 13.4 K/mcL (4.3-11.1)
[2020-05-19] MEDS: *HR* Enoxaparin 40 MG/0.4 ML SYRINGE SQ SCH (05:28)
[2020-05-19 05:50] LABS: BUN/Creatinine Ratio 23 (6-26); Blood Urea Nitrogen 20 mg/dL (6-20); Calcium 8.9 mg/dL (8.6-10.3); Carbon Dioxide 25 mEq/L (23-29); Chloride 97 mEq/L (98-107); Chol/HDL Ratio 5.8 (0-4.9); Cholesterol 187 mg/dL (< 200); Glucose 179 mg/dL (70-105); HDL Cholesterol 32 mg/dL (40-59); LDL Cholesterol,Calculated 122 mg/dL (0-99); Magnesium 1.8 mg/dL (1.6-2.6); Osmolality,Calculated 283 (280-300); Potassium 3.6 mEq/L (3.5-5.1); Sodium 133 mEq/L (136-145); Triglycerides 165 mg/dL (< 150); eGFR For African Americans > 60 (> 60); eGFR For Non-African Americans > 60 (> 60)
[2020-05-19] MEDS: Aspirin 81 MG TAB.CHEW PO SCH (08:57)
[2020-05-19] MEDS: Furosemide 40 MG/4 ML VIAL IVP SCH ×3 (08:57→21:24)
[2020-05-19] MEDS: Insulin LISPRO 300 UNITS/3 ML VIAL SQ SCH ×4 (08:57→21:24)
[2020-05-20 04:24] LABS: Hematocrit 44.7 % (37.5-50.1); Mean Corpuscular HGB Conc 33.6 g/dL (31.6-35.5); Mean Corpuscular Hemoglobin 29.5 pg (28.0-33.3); Mean Corpuscular Volume 87.8 fL (83.0-100.0); Mean Platelet Volume 10.1 fL (9.4-12.4); Platelet Count 267 K/mcL (140-400); Red Blood Count 5.09 M/mcL (4.19-5.50); Red Cell Distribution Width 14.5 % (11.5-14.5)
[2020-05-20 04:38] LABS: BUN/Creatinine Ratio 23 (6-26); Blood Urea Nitrogen 22 mg/dL (6-20); Calcium 8.9 mg/dL (8.6-10.3); Carbon Dioxide 26 mEq/L (23-29); Chloride 97 mEq/L (98-107); Glucose 159 mg/dL (70-105); Osmolality,Calculated 285 (280-300); Potassium 3.3 mEq/L (3.5-5.1); Sodium 134 mEq/L (136-145); eGFR For African Americans > 60 (> 60); eGFR For Non-African Americans > 60 (> 60)
[2020-05-20] MEDS: *HR* Enoxaparin 40 MG/0.4 ML SYRINGE SQ SCH (05:27)
[2020-05-20] MEDS ORDERED: Potassium Chloride Elixir 20 MEQ/15 ML UDC PO ONE (07:47)
[2020-05-20] MEDS: Aspirin 81 MG TAB.CHEW PO SCH (08:50)
[2020-05-20] MEDS: Insulin LISPRO 300 UNITS/3 ML VIAL SQ SCH ×4 (08:50→22:23)
[2020-05-20] MEDS: Furosemide 40 MG/4 ML VIAL IVP SCH ×3 (08:50→18:51)
[2020-05-20] MEDS ORDERED: Isosorbide MONOnitrate (24 HR) 30 MG TAB.ER.24H PO SCH (09:00)
[2020-05-20 10:20] LABS: Bilirubin,Urine Negative (Negative); Blood,Urine Negative (Negative); Clarity,Urine Clear (Clear); Color,Urine Light-Yellow (Yellow); Glucose,Urine (UA) Normal (Normal); Ketones,Urine Negative (Negative); Leukocyte Esterase,Urine Negative (Negative); Nitrite,Urine Negative (Negative); Protein,Urine Negative (Neg-Trace); Specific Gravity,Urine 1.013 (1.010-1.025); Urobilinogen,Urine Normal (Normal)
[2020-05-20 12:38] LABS: Adenovirus F 40/41 PCR Not detected (Not detect); Astrovirus PCR Not detected (Not detect); C.difficile Toxin A/B Gene PCR Not detected (Not detect); Campylobacter by PCR Not detected (Not detect); Cryptosporidium by PCR Not detected (Not detect); Cyclospora cayetanensis PCR Not detected (Not detect); E. coli O157 by PCR Not detected (Not detect); Entamoeba histolytica PCR Not detected (Not detect); Enteroaggregative E.coli(EAEC) Not detected (Not detect); Enteropathogenic E.coli(EPEC) Not detected (Not detect); Enterotoxigenic E.coli (ETEC) Not detected (Not detect); Giardia lamblia PCR Not detected (Not detect); Norovirus GI/GII PCR Not detected (Not detect); Plesiomonas shigelloides PCR Not detected (Not detect); Rotavirus A PCR Not detected (Not detect); Salmonella PCR Not detected (Not detect); Sapovirus PCR Not detected (Not detect); Shig/EnteroinvasiveE coli EIEC Not detected (Not detect); Shigalike tox-prod E coli STEC Not detected (Not detect); Vibrio PCR Not detected (Not detect); Vibrio cholerae PCR Not detected (Not detect); Yersinia enterocolitica PCR Not detected (Not detect)
[2020-05-20] MEDS ORDERED: Albumin 25% 25gram/100mL 25 GM/100 ML IV.SOLN IVPB ONE (15:04)
[2020-05-20] MEDS ORDERED: Acetaminophen 325 MG TABLET PO PRN (15:06)
[2020-05-20] MEDS ORDERED: Acetaminophen/Aspirin/Caffeine TABLET PO PRN (18:08)
[2020-05-20] MEDS ORDERED: 0.9 % Sodium Chloride 250 ML IVC ONE (18:56)
[2020-05-21 02:26] LABS: Basophils # 0.1 K/mcL (0.0-0.2); Basophils % 0.8 %; Eosinophils # 0.4 K/mcL (0.0-0.6); Eosinophils % 3.1 %; Hematocrit 41.7 % (37.5-50.1); Hemoglobin 13.5 g/dL (12.9-16.9); Immature Granulocytes % 0.7 % (0-4); Lymphocytes # 3.2 K/mcL (0.6-4.6); Mean Corpuscular HGB Conc 32.4 g/dL (31.6-35.5); Mean Corpuscular Hemoglobin 28.7 pg (28.0-33.3); Mean Corpuscular Volume 88.7 fL (83.0-100.0); Monocytes # 0.9 K/mcL (0.0-1.3); Monocytes % 7.3 %; Neutrophils # 7.6 K/mcL (1.6-8.9); Platelet Count 278 K/mcL (140-400); Red Cell Distribution Width 14.5 % (11.5-14.5); Segmented Neutrophils % 62.1 %; White Blood Count 12.2 K/mcL (4.3-11.1)
[2020-05-21 02:46] LABS: BUN/Creatinine Ratio 30 (6-26); Blood Urea Nitrogen 32 mg/dL (6-20); Calcium 8.9 mg/dL (8.6-10.3); Carbon Dioxide 25 mEq/L (23-29); Chloride 98 mEq/L (98-107); Glucose 140 mg/dL (70-105); Osmolality,Calculated 287 (280-300); Potassium 3.2 mEq/L (3.5-5.1); Sodium 134 mEq/L (136-145); eGFR For African Americans > 60 (> 60); eGFR For Non-African Americans > 60 (> 60)
[2020-05-21] MEDS: *HR* Enoxaparin 40 MG/0.4 ML SYRINGE SQ SCH (06:24)
[2020-05-21 06:43] LABS: Magnesium 1.9 mg/dL (1.6-2.6)
[2020-05-21] MEDS ORDERED: Potassium Chloride Elixir 20 MEQ/15 ML UDC PO ONE (07:35)
[2020-05-21] MEDS: Furosemide 40 MG/4 ML VIAL IVP SCH ×2 (08:03→21:02)
[2020-05-21] MEDS: Aspirin 81 MG TAB.CHEW PO SCH (08:03)
[2020-05-21] MEDS: Insulin LISPRO 300 UNITS/3 ML VIAL SQ SCH ×4 (08:04→21:02)
[2020-05-21] MEDS ORDERED: Metoprolol XL (24 HR) Succ 25 MG TAB.ER.24H PO SCH (13:00)
[2020-05-21] MEDS: Metoprolol XL (24 HR) Succ 25 MG TAB.ER.24H PO SCH (15:17)
[2020-05-22] MEDS: *HR* Enoxaparin 40 MG/0.4 ML SYRINGE SQ SCH (05:35)
[2020-05-22 07:28] VITALS: BP 133/76
[2020-05-22] MEDS: Metoprolol XL (24 HR) Succ 25 MG TAB.ER.24H PO SCH (07:49)
[2020-05-22] MEDS: Aspirin 81 MG TAB.CHEW PO SCH (07:49)
[2020-05-22] MEDS: Furosemide 40 MG/4 ML VIAL IVP SCH (07:50)
[2020-05-22] MEDS: Insulin LISPRO 300 UNITS/3 ML VIAL SQ SCH (07:51)
== END 2020-05-22 11:09 | disposition home or self-care (01) | DRG 292 ==
LOC: EMEROOARM 06:46 → CDU 06:46 → 2ANU 14:45 → SUATTDRO 05-19 13:47
PROVIDERS: ADMIT Internal Medicine; ATTEND Internal Medicine